=== PATIENT | female | born 1970 | race Caucasian/White ===

== ENCOUNTER → 2019-11-05 | Outpatient (CLI) | payer OTHER ==
[~2019-11-05] MED LIST: ATOR20TA PO; CLON0.5T PO; FLUO20CA16 PO; LOSA1TAB25 PO; LOSA25TA11 PO; NIFE30TA2 PO; ONDA-84 PO; [UNRECOGNIZED DRUG - REMARK]
--- NOTE | 2019-11-05 09:13 | RAD ---
Chest radiograph 11/05/2019 8:50 AM INDICATION: Cough COMPARISON: None available TECHNIQUE: Frontal and lateral views of the chest are provided. FINDINGS: The cardiomediastinal silhouette is within normal limits. There are no pleural effusions. There is no pulmonary vascular congestion. There is no pneumothorax. The lungs are clear. No significant osseous abnormality is identified. IMPRESSION: No acute cardiopulmonary process. Electronically signed by: Rosy Murphy MD (11/05/2019 9:10 AM) [facility]
== END | disposition home or self-care (01) ==
LOC: DXRAD 08:43
PROVIDERS: ATTEND Nurse Practitioner Family
DX: R07.2 Precordial pain (principal)
CPT/HCPCS: 71046

== ENCOUNTER → 2020-01-07 | Outpatient (CLI) | payer OTHER ==
--- NOTE | 2020-01-11 08:53 | RAD ---
DATE: 01/07/2020 11:04 AM EXAM: DIGITAL SCREEN BILAT W/CAD HISTORY: Baseline screening COMPARISON: None. Bilateral full field craniocaudal and mediolateral oblique images were obtained using digital technique. This study was interpreted with the benefit of Computerized Aided Detection (CAD). FINDINGS: Breast Density: FATTY The Breast Parenchyma is primarily fatty replaced. Breast parenchyma level density A. No suspicious masses, microcalcifications or architectural distortion is present to suggest malignancy in either breast. The visualized axillae are unremarkable. IMPRESSION: No mammographic evidence of malignancy. BI-RADS CATEGORY: 1 NEGATIVE RECOMMENDED FOLLOW-UP: 12M 12 MONTH FOLLOW-UP Annual screening mammography is recommended, unless clinically indicated sooner based on symptoms or change in physical exam. PQRS compliance statement: Patient information was entered into a reminder system with a target due date 01/07/2021 for the next mammogram. Mammography is a sensitive method for finding small breast cancers, but it does not detect them all and is not a substitute for careful clinical examination. A negative mammogram does not negate a clinically suspicious finding and should not result in delay in biopsying a clinically suspicious abnormality. "Our facility is accredited by the [employer] Mammography Program."
== END | disposition home or self-care (01) ==
LOC: MAMMO 10:46
PROVIDERS: ATTEND Nurse Practitioner Family
DX: Z12.31 Encounter for screening mammogram for malignant neoplasm of breast (principal)
CPT/HCPCS: 77067

== ENCOUNTER 2020-04-16 16:54 | Emergency (ER) | payer MEDICAID, OTHER ==
[~2020-04-16 16:54] MED LIST changes: +ONDA4TAB12 PO
== END 2020-04-16 17:30 | disposition left against medical advice (07) ==
LOC: ER 16:54
DX: R11.2 Nausea with vomiting, unspecified (principal); R19.7 Diarrhea, unspecified; Z53.21 Procedure and treatment not carried out due to patient leaving prior to being seen by health care provider

== ENCOUNTER 2020-08-26 09:07 | Emergency (ER) | payer OTHER ==
[~2020-08-26] VITALS: Ht 162.6 cm; Wt 121.8 kg
[2020-08-26 09:07] VITALS: BP 152/107
--- NOTE | 2020-08-26 09:25 | PHYS DOC ---
Past History Past Medical History: Depression, Hypertension, Kidney Stones, Other Past Surgical History: Cholecystectomy, Hysterectomy, Other Smoking: Cigarettes, Cigar Alcohol Use: Occasionally Drug Use: None General Adult HPI: HPI: 50-year-old female PMH Depression, Diabetes, GERD, Hypertension, fatty Liver Disease and right sided kidney stones presents to the ed with c/o abdominal pain "just above my right hip" that worsened at 6am. States "I always have chronic pain but this suddenly worsened," associated nausea, nonbloody nonbilious vomiting and hematuria. Patient is concerned she is passing a kidney stone due to recent CT imaging. EMR reviewed-0.3cm right non obstructive nephrolithiasis on March, CT imaging. Patient just started w/ primary care within the past few months. Reports she does not tolerate insulin due to nausea and vo miting. Has chronic "diarrhea due to my colitis," no formal GI evaluation- egd/colonoscopy evaluation for diagnosis. Is a tobacco smoker and states she has to smoke marijuana daily for this pain. Review of Systems: Review of Systems: Constitutional: Denies fever or chills Eyes: Denies change in visual acuity HENT: Denies nasal congestion or sore throat Respiratory: Denies cough or shortness of breath Cardiovascular: Denies chest pain or edema GI: Denies abdominal pain, nausea, vomiting, bloody stools or diarrhea : Denies dysuria or vaginal bleeding Musculoskeletal: Denies back pain or joint pain Integument: Denies rash or diaphoresis Neurologic: Denies headache, focal weakness or sensory changes Endocrine: Denies polyuria or polydipsia Lymphatic: Denies swollen glands Psychiatric: Denies depression or anxiety Allergies: Allergies: Allergies Coded Allergies Type Severity Reaction Last Updated Verified sulfamethoxazole Allergy Severe Itching 04/01/20 Yes trimethoprim Allergy Severe Itching 04/01/20 Yes codeine Allergy Mild 11/03/13 Yes Physical Exam: PE: Constitutional: In active pain, crying en route to bathroom, rn reports urine with visible blood, obese HENT: Normocephalic, atraumatic, Eyes: EOMI, conjunctiva normal, no discharge. Neck: Normal range of motion, supple, Cardiovascular: S1/2 present, regular rhythm Lungs & Thorax: Speaking in full sentences, bilateral equal chest rise, no tachypnea or increased work of breathing Abdomen: soft, no reproducible RUQ pain/rlq pain, no rigidity or guarding Skin: Warm, dry, no erythema, no rash. [] Back: No tenderness, no CVA tenderness. [] Extremities: No tenderness, no cyanosis, no lower extremity edema Neurologic: Alert and oriented X 3, normal motor function, normal sensory function, no focal deficits noted. [] Psychologic: Affect normal, judgement normal, mood normal. [] EKG: EKG: [] Radiology/Procedures: Radiology/Procedures: IMAGING REPORT Signed PATIENT: QIANA FREGOSO ACCOUNT: [id number] : 1970 LOCATION: ER AGE: 50 SEX: F EXAM STATUS: REG ER ORD. PHYSICIAN: MAYCO CAMPOS DO REASON: right flank pain PROCEDURE: CT ABDOMEN PELVIS WO CONTRAST EXAM: Abdomen and pelvis CT without intravenous contrast. HISTORY: Right flank pain. TECHNIQUE: Computed tomographic images of the abdomen and pelvis were obtained without contrast. Multiplanar reformatting was performed. *One or more of the following individualized dose reduction techniques were utilized for this examination: 1. Automated exposure control. 2. Adjustment of the mA and/or kV according to patient size. 3. Use of iterative reconstruction technique. COMPARISON: 07/13/2013. FINDINGS: Evaluation of the lower thorax demonstrates posterior dependent and basilar atelectasis. There is no infiltrate or pleural effusion. No hepatic lesion is seen. The gallbladder is surgically absent. The pancreas, spleen and adrenal glands are unremarkable. There is mild right hydronephrosis secondary to an obstructing 4 mm stone within the proximal ureter. No additional renal or ureteral stone is seen. There is no solid or cystic renal lesion. There is bladder wall thickening likely due to underdistention. There is no appendicitis. There is no bowel obstruction. There is no abnormal bowel wall thickening. There is distal colonic diverticulosis. The aorta is normal in caliber. There is aortobiiliac atherosclerosis. There is no lymphadenopathy. There is a 7 linear foreign body within the periumbilical fat to the left of midline. There is degenerative change involving the spine. There is no suspicious osseous lesion. IMPRESSION: 1. Mild right hydronephrosis secondary to an obstructing 4 mm stone within the proximal ureter. No additional renal or ureteral stone is seen. 2. Colonic diverticulosis. Electronically signed by: Azeb Do MD (08/26/2020 10:31 AM) [id number] DICTATED AND SIGNED BY: AZEB DO MD DATE: 08/26/20 1027 CC: ANTHONY MEREDITH; BETHMAYCO DO ~MTH0 0 Heart Score: C/O Chest Pain: No Risk Factors: Risk Factors: DM, Current or recent (<one month) smoker, HTN, HLP, family history of CAD, obesity. Risk Scores: Score 0 - 3: 2.5% MACE over next 6 weeks - Discharge Home Score 4 - 6: 20.3% MACE over next 6 weeks - Admit for Clinical Observation Score 7 - 10: 72.7% MACE over next 6 weeks - Early Invasive Strategies Course & Med Decision Making: Course & Med Decision Making Pertinent Labs and Imaging studies reviewed. (See chart for details) Concern for renal colic with mild right hydronephrosis secondary to 4 mm obstructive stone in the proximal ureter in the setting of daily thc use for chronic pain. Copious blood visible on UA sample per rn, [address] report shows aorta is normal in caliber. On reevaluation patient is sleeping, reports her pain is well-managed. Will DC home with analgesia, Flomax, zofran and recommend [id number] ibuprofen. CT report printed to take to pts' urologist. Is HD stable with asymptomatic hypertension, renal function improved from 03/2020-patient has no chest pain, shortness of breath, blurred vision, neurologic deficit or new acute kidney injury. Will discharge home with strict ED return precautions were given for nausea, vomiting, fever or flulike symptoms, severe pain or confusion/neurologic deficits. Encouraged urgent outpatient follow-up with PMD to repeat blood pressure within 2-3 days and urology urgent follow-up for definitive management. Life-threatening processes were considered but are low suspicion at this time, given history, physical exam and ED workup. Pt was educated on all prescription medications and adverse effects. All patient's questions were answered and pt was stable at time of discharge. Life/limb-threatening differential includes but is not limited to, aortic dissection/aneurysm, cauda equina syndrome, transverse myelitis, spinal cord/epidural compression syndromes, discitis, spinal stenosis, epidural abscess or hematoma, osteomyelitis, disc herniation, surgical abdomen, stable or unstable fracture, renal/ureteral colic, sepsis, meningitis, musculoskeletal injury, traumatic injury, intraabdominal/retroperitoneal or pelvic bleeding. I spoken with the patient and her caregivers. I explained the patient's condition, diagnoses and treatment plan based on the information available to me at this time. I have answered the patient and her caregiver's questions and addressed any concerns. The patient and her caregivers have a good understanding of patient's diagnosis, condition and treatment plan as can be expected at this point. Vital signs have been stable. Patient's condition is stable and appropriate for discharge from the emergency department. Patient will pursue further outpatient evaluation with primary care physician or other designated or consulting physician as outlined in the discharge instructions. The patient and/or caregivers are agreeable to this plan of care and follow-up instructions have been explained in detail. The patient and/or caregivers have received these instructions in written form and have expressed an understanding of the discharge instructions. The patient and/or caregivers are aware that any significant change of condition or worsening of symptoms should prompt immediate return to this or the closest emergency department or call to [phone]. Leslie Disclaimer: Leslie Disclaimer: This electronic medical record was generated, in whole or in part, using a voice recognition dictation system. Departure Departure: Impression: Primary Impression: Ureterolithiasis Additional Impressions: Hydronephrosis due to obstruction of ureter Hematuria Hypertension Disposition: 01 DC HOME SELF CARE/HOMELESS Condition: STABLE Referrals: ANTHONY MEREDITH (PCP) within 2-3 days for blood pressure check Patient Instructions: Diet for Kidney Stones, Kidney Stones Additional Instructions: FOLLOW WITH UROLOGY: FOR DEFINITIVE MANAGEMENT [facility] [address] [place] [address] OR [facility] [address] [address] FOLLOW UP WITH GASTROENTEROLOGY: [facility] [address], [address], [place] [address] EMERGENCY DEPARTMENT GENERAL DISCHARGE INSTRUCTIONS Thank you for coming to [facility] (ED) today and trusting us with you care. We trust that you had a positivie experience in our Emergency Department. If you wish to speak to the department management, you may call the director at [phone]. YOUR FOLLOW UP INSTRUCTIONS ARE FOLLOWS: 1. Do you have a private Doctor? If you do not have a private doctor, please ask for a resource list of physicians or clinics that may be able to assist you with follow up care. 2. The Emergency Physician has interpreted your x-rays. The X-Ray specialist will also review them. If there is a change in the findings, you will be notified in 48 hours when at all possible. 3. A lab test or culture has been done, your results will be reviewed and you will be notified if you need a change in treatment. ADDITIONAL INSTRUCTIONS AND INFORMATION: 1. Your care today has been supervised by a physician who is specially trained in emergency care. Many problems require more than one evaluation for a complete diagnosis and treatment. We recommend that you schedule your follow up appointment as recommended to ensure complete treatment of you illness or injury. If you are unable to obtain follow up care and continue to have a problem, or if your condition worsens, we recommend that you return to the ED. 2. We are not able to safely determine your condition over the phone nor are we able to give sound medical advice over the phone. For these safety reasons, if you call for medical advice we will ask you to come to the ED for further evaluation. 3. If you have any questions regarding these discharge instructions please call the ED at [phone]. SAFETY INFORMATION: In the interest of safety, wellness, and injury prevention; we encourage you to wear your sealbelt, if you smoke; quite smoking, and we encourage family to use a protective helmet for bicycling and other sporting events that present an increased risk for head injury. IF YOUR SYMPTOMS WORSEN OR NEW SYMPTOMS DEVELOP, OR YOU HAVE CONCERNS ABOUT YOUR CONDITION; OR IF YOUR CONDITION WORSENS WHILE YOU ARE WAITING FOR YOUR FOLLOW UP APPOINTMENT; EITHER CONTACT YOUR PRIMARY CARE DOCTOR, THE PHYSICIAN WHOSE NAME AND NUMBER YOU WERE GIVEN, OR RETURN TO THE ED IMMEDIATELY. Scripts Ondansetron (ONDANSETRON ODT) 4 Mg Tab.rapdis 4 MG PO Q6HRS for Nausea/Vomiting, #20 TAB Prov: MAYCO CAMPOS DO 08/26/20 Tamsulosin Hcl (FLOMAX) 0.4 Mg Cap.er.24h 0.4 MG PO DAILY for kidney stone for 7 Days, #7 CAP.SR Prov: MAYCO CAMPOS DO 08/26/20 Hydrocodone Bit/Acetaminophen (HYDROCODONE-APAP 5-325 ) 1 Each Tablet 1 TAB PO PRN Q6HRS PRN for PAIN for 4 Days, #16 TAB 0 Refills No alcohol, driving, or operating machinery with this medication. Causes constipation, take with fiber/stool softeners. Prov: MAYCO CAMPOS DO 08/26/20 MAYCO CAMPOS DO Aug 26, 2020 09:25
[2020-08-26] MEDS ORDERED: HYDROmorphone PF 1 MG/ML DISP.SYRIN ONE (09:26)
[2020-08-26] MEDS ORDERED: ONDANSETRON PF 4 MG/2 ML VIAL. ONE (09:26)
[2020-08-26] MEDS ORDERED: HYDROmorphone PF 2 MG/ML VIAL IVP ONE (09:30)
[2020-08-26] MEDS ORDERED: IV NORMAL SALINE 1,000ML 1,000 ML IV SCH (09:30)
[2020-08-26] MEDS ORDERED: HYDROmorphone PF 1 MG/ML DISP.SYRIN IVP ONE ×3 (09:30→09:45)
[2020-08-26] MEDS ORDERED: HALOPERIDOL LACT 5 MG/ML VIAL. IVP ONE (09:45)
[2020-08-26] MEDS ORDERED: ONDANSETRON PF 4 MG/2 ML VIAL. IVP ONE (09:45)
[2020-08-26 09:51] LABS: BASO % 0 % (0-3); EOS # 1.4 x10^3/uL (0.0-0.7); EOS % 12 % (0-3); HEMOGLOBIN 15.7 g/dL (12.0-15.5); LYMPH # 2.5 x10^3/uL (1.0-4.8); LYMPH % 22 % (24-48); MEAN CORPUSCULAR HEMOGLOBIN 29 pg (25-35); MEAN CORPUSCULAR HGB CONC 33 g/dL (31-37); MEAN CORPUSCULAR VOLUME 88 fL (79-100); MONO # 0.5 x10^3/uL (0.0-1.1); MONO % 4 % (0-9); NEUT # 6.9 x10^3uL (1.8-7.7); NEUT % 62 % (31-73); PLATELET COUNT 272 x10^3/uL (140-400); RED BLOOD COUNT 5.32 x10^6/uL (3.50-5.40); RED CELL DISTRIBUTION WIDTH 14.6 % (11.5-14.5); WHITE BLOOD COUNT 11.3 x10^3/uL (4.0-11.0)
[2020-08-26 10:00] LABS: CLARITY,URINE BLOODY; COLOR,URINE RED
[2020-08-26 10:00] LABS: CALCIUM 9.6 mg/dL (8.5-10.1); CREATININE 1.2 mg/dL (0.6-1.0); GFR 47.4; POTASSIUM 3.7 mmol/L (3.5-5.1)
[2020-08-26 10:01] LABS: AMORPHOUS SEDIMENT,UR PRESENT /HPF; BACTERIA,URINE 0 /HPF (0-FEW); BARBITURATES NEG (NEG); BENZODIAZEPINES NEG (NEG); CANNABINOIDS POS (NEG); COCAINE NEG (NEG); METHADONE NEG (NEG); OPIATES NEG (NEG); PHENCYCLIDINE NEG (NEG); RBC,URINE TNTC /HPF (0-2); SQUAMOUS EPITHELIAL CELL,UR FEW /LPF; WBC,URINE OCC /HPF (0-4)
[2020-08-26 10:02] LABS: U PREG PATIENT NEGATIVE (NEG)
[2020-08-26 10:03] LABS: AMPHETAMINE/METHAMPHETAMINE NEG (NEG)
[2020-08-26 10:07] LABS: ALBUMIN 3.6 g/dL (3.4-5.0); ALBUMIN/GLOBULIN RATIO 0.8 (1.0-1.7); TOTAL BILIRUBIN 0.6 mg/dL (0.2-1.0); TOTAL PROTEIN 7.9 g/dL (6.4-8.2)
--- NOTE | 2020-08-26 10:33 | RAD ---
EXAM: Abdomen and pelvis CT without intravenous contrast. HISTORY: Right flank pain. TECHNIQUE: Computed tomographic images of the abdomen and pelvis were obtained without contrast. Mult iplanar reformatting was performed. *One or more of the following individualized dose reduction techniques were utilized for this examina tion: 1. Automated exposure control. 2. Adjustment of the mA and/or kV according to patient size. 3. Use of iterative reconstruction technique. COMPARISON: 07/13/2013. FINDINGS: Evaluation of the lower thorax demonstrates posterior dependent and basilar atelectasis. Th ere is no infiltrate or pleural effusion. No hepatic lesion is seen. The gallbladder is surgically ab sent. The pancreas, spleen and adrenal glands are unremarkable. There is mild right hydronephrosis secondary to an obstructing 4 mm stone within the proximal ureter. No additional renal or ureteral stone is seen. There is no solid or cystic renal lesion. There is bl adder wall thickening likely due to underdistention. There is no appendicitis. There is no bowel obstruction. There is no abnormal bowel wall thickening. There is distal colonic diverticulosis. The aorta is normal in caliber. There is aortobiiliac atheros clerosis. There is no lymphadenopathy. There is a 7 linear foreign body within the periumbilical fat to the left of midline. There is degenerative change involving the spine. There is no suspicious osse ous lesion. IMPRESSION: 1. Mild right hydronephrosis secondary to an obstructing 4 mm stone within the proximal ureter. No ad ditional renal or ureteral stone is seen. 2. Colonic diverticulosis. Electronically signed by: Azeb Hernandez MD (08/26/2020 10:31 AM) [id number]
[2020-08-26] MEDS ORDERED: TAMSULOSIN 0.4 MG CAP.ER.24H. PO ONE (10:45)
[2020-08-26] MEDS ORDERED: TAMS0.4C97 PO (11:37)
[2020-08-26] MEDS ORDERED: HYDR-2155 PO (11:37)
[2020-08-26] MEDS ORDERED: ONDA4TAB12 PO (11:41)
== END 2020-08-26 11:50 | disposition home or self-care (01) ==
LOC: ER 09:07
DX: N13.2 Hydronephrosis with renal and ureteral calculous obstruction (principal); I10 Essential (primary) hypertension; K21.9 Gastro-esophageal reflux disease without esophagitis; F32.9 Major depressive disorder, single episode, unspecified; F17.210 Nicotine dependence, cigarettes, uncomplicated; E11.9 Type 2 diabetes mellitus without complications; Z87.442 Personal history of urinary calculi; Z90.49 Acquired absence of other specified parts of digestive tract; Z90.710 Acquired absence of both cervix and uterus; Z88.5 Allergy status to narcotic agent; Z88.1 Allergy status to other antibiotic agents; Z88.2 Allergy status to sulfonamides
CPT/HCPCS: 36415; 74176; 80053; 80307; 81001; 81025; 82550; 83690; 85025; 96361; 96374; 96375; 99284; J1170; J1630; J2405; J7030

== ENCOUNTER → 2020-09-08 | Outpatient (CLI) | payer OTHER ==
[2020-08-26 09:07] VITALS: BP 152/107
[~2020-09-08] MED LIST changes: +HYDR-2155 PO; +TAMS0.4C97 PO
--- NOTE | 2020-09-08 17:21 | RAD ---
XR KNEE _3 VIEWS_LT DATE: 09/08/2020 3:27 PM INDICATION: Reason: Recent fall, patellar pain / Spl. Instructions: / History: COMPARISON: None. FINDINGS: Bones: There is no evidence of acute fracture or dislocation. Joints: The joint spaces are normal. There is no joint effusion. Miscellaneous: None. IMPRESSION: No evidence of acute fracture. Electronically signed by: Boris Reece MD (09/08/2020 5:18 PM) [id number]
--- NOTE | 2020-09-08 17:23 | RAD ---
XR FOOT_LEFT 3 VIEWS DATE: 09/08/2020 3:27 PM INDICATION: Reason: Recent fall, swelling to foot. / Spl. Instructions: / History: COMPARISON: None. FINDINGS: Bones: There is no evidence of acute fracture or dislocation. Small posterior and plantar calcaneal e nthesophytes. Joints: The joint spaces are normal. Miscellaneous: None. IMPRESSION: No evidence of acute fracture. Electronically signed by: Boris Reece MD (09/08/2020 5:21 PM) [id number]
== END ==
LOC: DXRAD 15:21
PROVIDERS: ATTEND Nurse Practitioner Family
DX: M77.32 Calcaneal spur, left foot (principal); R22.42 Localized swelling, mass and lump, left lower limb
CPT/HCPCS: 73562; 73630

== ENCOUNTER 2020-12-13 11:55 | Emergency (ER) | payer OTHER ==
[~2020-12-13] VITALS: Ht 170.2 cm; Wt 115.8 kg
[2020-12-13] MEDS ORDERED: IV NORMAL SALINE 1,000ML 1,000 ML IV ONE (12:15)
[2020-12-13] MEDS ORDERED: ONDANSETRON PF 4 MG/2 ML VIAL. IVP ONE (12:15)
[2020-12-13 12:32] LABS: BASO % 1 % (0-3); EOS # 0.3 x10^3/uL (0.0-0.7); EOS % 4 % (0-3); HEMATOCRIT 43.1 % (36.0-47.0); HEMOGLOBIN 14.7 g/dL (12.0-15.5); LYMPH # 0.8 x10^3/uL (1.0-4.8); LYMPH % 11 % (24-48); MEAN CORPUSCULAR HEMOGLOBIN 30 pg (25-35); MEAN CORPUSCULAR HGB CONC 34 g/dL (31-37); MEAN CORPUSCULAR VOLUME 89 fL (79-100); MONO # 0.4 x10^3/uL (0.0-1.1); MONO % 5 % (0-9); NEUT # 5.9 x10^3uL (1.8-7.7); NEUT % 80 % (31-73); PLATELET COUNT 198 x10^3/uL (140-400); RED BLOOD COUNT 4.84 x10^6/uL (3.50-5.40); RED CELL DISTRIBUTION WIDTH 14.5 % (11.5-14.5); WHITE BLOOD COUNT 7.4 x10^3/uL (4.0-11.0)
--- NOTE | 2020-12-13 12:34 | PHYS DOC ---
Past History Past Medical History: CVA, Depression, Diverticulitis, GERD, Hypertension, Kidney Stones, Liver Disease, Stroke, Other Past Surgical History: Cholecystectomy, Hysterectomy, Other Smoking: Cigarettes, Cigar Alcohol Use: Occasionally Drug Use: None General Adult EDM: Chief Complaint: ABDOMINAL PAIN HPI: HPI: Patient is a 50-year-old female presents with lower abdominal pain, diarrhea, vomiting since Saturday night. Patient states "I have not been able to keep anything down". Patient denies taking anything for pain prior to arrival. Denies fevers. Patient has history of hypertension, diabetes, kidney stones. Review of Systems: Review of Systems: Constitutional: Denies fever or chills Eyes: Denies change in visual acuity HENT: Denies nasal congestion or sore throat Respiratory: Denies cough or shortness of breath Cardiovascular: Denies chest pain or edema GI: Reports lower abdominal pain, nausea, vomiting, diarrhea : Denies dysuria Musculoskeletal: Denies back pain or joint pain Integument: Denies rash Neurologic: Denies headache, focal weakness or sensory changes Endocrine: Denies polyuria or polydipsia Lymphatic: Denies swollen glands Psychiatric: Denies depression or anxiety Current Medications: Current Meds: Current Medications Medications (Trade) Dose Ordered Sig/Chandler Start Time Stop Time Status Last Admin Dose Admin Fentanyl Citrate (Fentanyl 2ml Vial) 50 mcg 1X ONCE 12/13/20 12:15 12/13/20 12:27 DC Ondansetron HCl (Zofran) 4 mg 1X ONCE 12/13/20 12:15 12/13/20 12:27 DC Sodium Chloride 1,000 ml @ 1,000 mls/hr 1X ONCE 12/13/20 12:15 12/13/20 13:14 Allergies: Allergies: Allergies Coded Allergies Type Severity Reaction Last Updated Verified sulfamethoxazole Allergy Severe Itching 04/01/20 Yes trimethoprim Allergy Severe Itching 04/01/20 Yes codeine Allergy Mild 11/03/13 Yes Physical Exam: PE: Constitutional: Well developed, well nourished, no acute distress, non-toxic appearance. [] HENT: Normocephalic, atraumatic, bilateral external ears normal, oropharynx moist, no oral exudates, nose normal. [] Eyes: PERRLA, EOMI, conjunctiva normal, no discharge. [] Neck: Normal range of motion, no tenderness, supple, no stridor. [] Cardiovascular:Heart rate regular rhythm, no murmur [] Lungs & Thorax: Bilateral breath sounds clear to auscultation [] Abdomen: Bowel sounds normal, soft, lower abdomen tenderness Skin: Warm, dry, no erythema, no rash. [] Back: No tenderness, no CVA tenderness. [] Extremities: No tenderness, no cyanosis, no clubbing, ROM intact, no edema. [] Neurologic: Alert and oriented X 3, normal motor function, normal sensory function, no focal deficits noted. [] Psychologic: Affect normal, judgement normal, mood normal. [] EKG: EKG: [] Radiology/Procedures: Radiology/Procedures: []Exam Date: 12/13/2020 12:[address] ABDOMEN+PELVIS WO Indication: Reason: LOWER ABDOMINAL PAIN / Spl. Instructions: / History: . TECHNIQUE: CT examination of the abdomen and pelvis was performed without oral or intravenous contrast. One or more of the following dose reduction techniques were utilized: *Automated exposure control (AEC) *Adjustment of mA and/or kV according to patient size *Use of iterative reconstruction technique *CT scan done according to ALARA, or ALARA/IMAGE GENTLY COMPARISON: August 26, 2020 FINDINGS: The visualized lung bases are clear. Status post cholecystectomy. The liver, spleen, pancreas, and adrenal glands are normal. The kidneys are normal bilaterally. No hydronephrosis or hydroureter is seen. No urinary tract calculi are seen. Urinary bladder is normal in appearance. Diverticulosis coli is seen without bowel obstruction or inflammation. The appendix is normal. There is a small fat-containing umbilical hernia. Mild atherosclerotic calcifications are seen. No lymphadenopathy or ascites is seen. Degenerative changes are seen in the spine. IMPRESSION: Normal appearance of the kidneys and bladder. No hydronephrosis or hydroureter. No urinary tract calculi. Diverticulosis coli noted without evidence for bowel inflammation or obstruction. Electronically signed by: Tru Allison MD (12/13/2020 1:06 PM) [id number] Heart Score: C/O Chest Pain: No Risk Factors: Risk Factors: DM, Current or recent (<one month) smoker, HTN, HLP, family history of CAD, obesity. Risk Scores: Score 0 - 3: 2.5% MACE over next 6 weeks - Discharge Home Score 4 - 6: 20.3% MACE over next 6 weeks - Admit for Clinical Observation Score 7 - 10: 72.7% MACE over next 6 weeks - Early Invasive Strategies Course & Med Decision Making: Course & Med Decision Making Pertinent Labs and Imaging studies reviewed. (See chart for details) [] 50-year-old female presents with lower abdominal pain, nausea/vomiting/diarrhea since Saturday night. CT of abdomen pelvis ordered rule out kidney stone. Patient given fentanyl and Zofran. She reports that pain and nausea have both improved. Discussed results with patient. I will be sending patient home with Zofran and Percocet for discomfort. Patient is to follow-up with her PCP if pain continues. Should be discharged with diagnosis of diverticulosis. Patient is appreciative and okay with discharge plan. Leslie Disclaimer: Leslie Disclaimer: This electronic medical record was generated, in whole or in part, using a voice recognition dictation system. Departure Departure: Impression: Primary Impression: Diverticulosis Additional Impressions: Diarrhea Qualified Codes: R19.7 - Diarrhea, unspecified Nausea & vomiting Qualified Codes: R11.2 - Nausea with vomiting, unspecified Disposition: HOME / SELF CARE / HOMELESS Condition: STABLE Referrals: TAY BRIDGES (PCP) Patient Instructions: Diverticulosis-Brief Scripts Oxycodone HCl/Acetaminophen (Percocet 5-325 mg Tablet) 1 Each Tablet 1 EACH PO Q4-6HRS PRN for PAIN for 3 Days, #12 TAB Prov: AYDIN RUBI APRN 12/13/20 Ondansetron Hcl (ZOFRAN) 4 Mg Tablet 4 MG PO TID PRN PRN for NAUSEA for 30 Days, #30 TAB Prov: AYDIN RUBI APRN 12/13/20 AYDIN RUBI APRN Dec 13, 2020 12:34
[2020-12-13 12:46] LABS: ALBUMIN 3.7 g/dL (3.4-5.0); ALBUMIN/GLOBULIN RATIO 0.9 (1.0-1.7); CALCIUM 9.5 mg/dL (8.5-10.1); CREATININE 1.1 mg/dL (0.6-1.0); GFR 52.4; POTASSIUM 3.5 mmol/L (3.5-5.1); TOTAL BILIRUBIN 0.6 mg/dL (0.2-1.0); TOTAL PROTEIN 7.6 g/dL (6.4-8.2)
--- NOTE | 2020-12-13 13:08 | RAD ---
Exam Date: 12/13/2020 12:[address] ABDOMEN+PELVIS WO Indication: Reason: LOWER ABDOMINAL PAIN / Spl. Instructions: / History: . TECHNIQUE: CT examination of the abdomen and pelvis was performed without oral or intravenous contra st. One or more of the following dose reduction techniques were utilized: *Automated exposure control (AEC) *Adjustment of mA and/or kV according to patient size *Use of iterative reconstruction technique *CT scan done according to ALARA, or ALARA/IMAGE GENTLY COMPARISON: August 26, 2020 FINDINGS: The visualized lung bases are clear. Status post cholecystectomy. The liver, spleen, pancreas, and adrenal glands are normal. The kidneys are normal bilaterally. No hydronephrosis or hydroureter is seen. No urinary tract calc du are seen. Urinary bladder is normal in appearance. Diverticulosis coli is seen without bowel obstruction or inflammation. The appendix is normal. There is a small fat-containing umbilical hernia. Mild atherosclerotic calcifications are seen. No lymphadenopathy or ascites is seen. Degenerative changes are seen in the spine. IMPRESSION: Normal appearance of the kidneys and bladder. No hydronephrosis or hydroureter. No urinary tract ca lculi. Diverticulosis coli noted without evidence for bowel inflammation or obstruction. Electronically signed by: Tru Allison MD (12/13/2020 1:06 PM) [id number]
[2020-12-13 13:24] LABS: BILIRUBIN,URINE NEG (NEG); CLARITY,URINE CLEAR; COLOR,URINE YELLOW; GLUCOSE,URINE NEG (NEG); NITRITE,URINE NEG (NEG); UROBILINOGEN,URINE 0.2 mg/dL (0.2 mg/dL)
[2020-12-13 13:29] LABS: BACTERIA,URINE FEW /HPF (0-FEW); SQUAMOUS EPITHELIAL CELL,UR FEW /LPF; WBC,URINE OCC /HPF (0-4)
[2020-12-13 14:50] VITALS: BP 152/81
[2020-12-13] MEDS ORDERED: OXYC-325 PO (14:54)
[2020-12-13] MEDS ORDERED: ONDA4TAB7 PO (14:54)
--- NOTE | 2020-12-13 20:47 | EKG ---
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
== END 2020-12-13 15:15 | disposition home or self-care (01) ==
LOC: ER 11:55
DX: K57.90 Diverticulosis of intestine, part unspecified, without perforation or abscess without bleeding (principal); R11.2 Nausea with vomiting, unspecified; R19.7 Diarrhea, unspecified; K21.9 Gastro-esophageal reflux disease without esophagitis; I10 Essential (primary) hypertension; F17.210 Nicotine dependence, cigarettes, uncomplicated; E11.9 Type 2 diabetes mellitus without complications; Z87.442 Personal history of urinary calculi; Z86.73 Personal history of transient ischemic attack (TIA), and cerebral infarction without residual deficits; Z88.2 Allergy status to sulfonamides; Z88.1 Allergy status to other antibiotic agents; Z88.5 Allergy status to narcotic agent
CPT/HCPCS: 36415; 74176; 80053; 81001; 81025; 83690; 85025; 93005; 96374; 96375; 96376; 99285; J2405; J3010; J7030

== ENCOUNTER → 2021-03-24 | Outpatient (CLI) | payer OTHER ==
[~2021-03-24] MED LIST changes: +ONDA4TAB7 PO; +OXYC-325 PO
--- NOTE | 2021-03-24 09:10 | RAD ---
EXAM: Left knee, 3 views. HISTORY: Pain. Fall. COMPARISON: None. FINDINGS: 3 views of the left knee are obtained. There is no fracture, dislocation or subluxation. Th ere is no joint effusion. IMPRESSION: No acute osseous finding. Electronically signed by: Azeb Hernandez MD (03/24/2021 9:08 AM) [id number]
== END ==
LOC: RAD 08:40
PROVIDERS: ATTEND Family Medicine
DX: M25.562 Pain in left knee (principal)
CPT/HCPCS: 73562

== ENCOUNTER → 2021-04-05 | Outpatient (CLI) | payer OTHER ==
--- NOTE | 2021-04-05 16:29 | RAD ---
US EXT NON VASC RIGHT History:Reason: RT AXILLARY LUMPS X 1 MONTH / Spl. Instructions: / History: Comparison: None Technique: Sonographic examination of the right axillary region. Findings: Complicated cystic lesion within the right axilla subcutaneous tissues measures 0.3 x 0.3 cm. Additio nal complicated cystic lesion within the right axilla measures 0.3 x 0.4 x 0.2 cm. These lesions martinez espond with the patient's palpable concern. No pathologic lymphadenopathy. Impression: 1. Two small complicated cystic lesions within the right axillary subcutaneous tissues, may represen t epidermal inclusion cysts. Recommend clinical follow-up and ultrasound follow-up if indicated. Electronically signed by: Norberto Arboleda DO (04/05/2021 4:27 PM) [id number]
== END ==
LOC: US 12:52
PROVIDERS: ATTEND Family Medicine
DX: R22.31 Localized swelling, mass and lump, right upper limb (principal)
CPT/HCPCS: 76881

== ENCOUNTER 2021-07-06 20:56 | Emergency (ER) | payer OTHER ==
[~2021-07-06] VITALS: Ht 170.2 cm; Wt 115.8 kg
[2021-07-06 21:02] VITALS: BP 130/80
--- NOTE | 2021-07-06 21:28 | PHYS DOC ---
Past History Past Medical History: CVA, Depression, GERD, Hypertension, Kidney Stones, Other Additional Past Medical Histor: gastritis, colitis, fatty liver (CALI OSBORN) Past Surgical History: Cholecystectomy, Hysterectomy, Other Additional Past Surgical Histo: d&c (CALI OSBORN) Smoking: Cigarettes, Cigar Alcohol Use: None Drug Use: None (CALI OSBORN) General Adult EDM: Chief Complaint: FLANK PAIN HPI: HPI: Patient is a 51 year old female who presents with 2-day history of left flank pain, urinary urgency and urinary frequency. She states her pain is 9/10 in her left flank radiating around her abdomen and down the left extremity. Patient reports she has history of kidney stones. She denies fever, chills, weakness, hematuria, dysuria, abdominal pain, NVD. (CALI OSBORN) Review of Systems: Review of Systems: ROS negative or noncontributory except as mentioned in HPI. (CALI OSBORN) Allergies: Allergies: Allergies Coded Allergies Type Severity Reaction Last Updated Verified sulfamethoxazole Allergy Severe Itching 07/06/21 Yes trimethoprim Allergy Severe Itching 07/06/21 Yes codeine Allergy Mild 07/06/21 Yes (CALI OSBORN) Physical Exam: PE: Constitutional: Well developed, well nourished, no acute distress, non-toxic appearance. HENT: Normocephalic, atraumatic, bilateral external ears normal, nose normal. Eyes: EOMI, conjunctiva normal, no discharge. Neck: Normal range of motion, no stridor. Abdomen: Bowel sounds normal, soft, no tenderness, no masses, no pulsatile masses. Skin: Warm, dry, no erythema, no rash. Back: No tenderness, no CVA tenderness. [] Neurologic: Alert and oriented x4, steady and symmetrical gait, no focal deficits noted. (CALI OSBORN) Current Patient Data: Labs: Laboratory Tests Test 07/06/21 21:15 Urine Collection Type Unknown Urine Color Yellow Urine Clarity Clear Urine pH 6.5 Urine Specific [place] 1.020 Urine Protein Neg (NEG-TRACE) Urine Glucose (UA) Neg mg/dL (NEG) Urine Ketones (Stick) Neg mg/dL (NEG) Urine Blood Small (NEG) Urine Nitrite Neg (NEG) Urine Bilirubin Neg (NEG) Urine Urobilinogen Dipstick 0.2 mg/dL (0.2 mg/dL) Urine Leukocyte Esterase Neg (NEG) Urine RBC 1-2 /HPF (0-2) Urine WBC Rare /HPF (0-4) Urine Squamous Epithelial Cells Few /LPF Urine Bacteria 0 /HPF (0-FEW) Vital Signs: Vital Signs Date Time Temp Pulse Resp B/P (MAP) Pulse Ox O2 Delivery O2 Flow Rate FiO2 07/06/21 21:02 99.0 87 20 130/80 (97) 97 Room Air (CALI OSBORN) Radiology/Procedures: Radiology/Procedures: PROCEDURE: CT ABDOMEN PELVIS WO CONTRAST EXAMINATION: CT abdomen and pelvis without IV contrast. INDICATION:51 years, Female, flank pain. TECHNIQUE: Axial CT images of the abdomen and pelvis were obtained. Coronal and sagittal reformatted performed. COMPARISON: CT dated 12/13/2020. Exposure: One or more of the following individualized dose reduction techniques were utilized for this examination: 1. Automated exposure control 2. Adjustment of the mA and/or kV according to patient size 3. Use of iterative reconstruction technique. FINDINGS: LOWER CHEST: Trace amount of pericardial effusion. ABDOMEN/PELVIS: Within the limitation of noncontrast exam, No hydronephrosis or nephrolithiasis in either kidney. Diffuse urinary bladder wall thickening, may relate to underdistended lumen. Liver, spleen, pancreas, adrenal glands and biliary ducts are unremarkable. Cholecystectomy. No bowel obstruction. Colonic diverticulosis without acute diverticulitis. Normal appendix. Moderate aortoiliac atherosclerotic calcifications without dilation. No pneumoperitoneum or ascites. No pathologically enlarged lymph nodes in the abdomen or pelvis by size criteria. Hysterectomy. No suspicious pelvic masses. MUSCULOSKELETAL STRUCTURES: No acute osseous process. Mild multilevel degenerative changes in the spine. Small fat-containing umbilical hernia, unchanged. IMPRESSION: 1. No obstructive uropathy or urolithiasis. 2. Diffuse urinary bladder wall thickening, may relate to underdistended lumen. Correlate for cystitis. 3. Colonic diverticulosis without acute diverticulitis. Electronically signed by: Yana Rahman MD (07/06/2021 9:55 PM) [facility] (CALI OSBORN) Heart Score: C/O Chest Pain: No (CALI OSBORN) Course & Med Decision Making: Course & Med Decision Making Pertinent Labs and Imaging studies reviewed. (See chart for details) Patient is a 51-year-old female with history of kidney stones who presents today with left-sided flank pain, urinary frequency and urinary urgency that began 2 days ago. She states that her back pain worsened this morning around 0600. She attempted using a massage gun and stretching to relieve her pain, but nothing worked. Work-up today will include urinalysis and CT abdomen pelvis plain. She is provided with IM Toradol and Norflex. No stones are seen on CT imaging. It is possible that she already passed the stones, if there were any. (CALI OSBORN) Course & Med Decision Making Did not see or evaluate patient. Discussed patient with [employer] INST[employer]ER. Agree with [employer] INST[employer]ER's work-up and disposition per note. (KAYDEN JOSHI MD) Dragon Disclaimer: Dragon Disclaimer: This electronic medical record was generated, in whole or in part, using a voice recognition dictation system. (CALI OSBORN) Departure Departure: Impression: Primary Impression: Low back pain Qualified Codes: M54.50 - Low back pain, unspecified Disposition: HOME / SELF CARE / HOMELESS Condition: IMPROVED Referrals: TWYLA MUNIZ (PCP) Patient Instructions: Diet for Kidney Stones Additional Instructions: EMERGENCY DEPARTMENT GENERAL DISCHARGE INSTRUCTIONS Thank you for coming to [facility] (ED) today and trusting us with you care. We trust that you had a positive experience in our Emergency Department. If you wish to speak to the department management, you may call the director at . YOUR FOLLOW UP INSTRUCTIONS ARE FOLLOWS: 1. Follow up with your primary care doctor. If you do not have a primary doctor, please ask for a resource list of physicians or clinics that may be able to assist you with follow up care. 2. The emergency provider has interpreted your images. The radiology microarray specialist also reviewed them. If there is a change in the findings, you will be notified in 48 hours when at all possible. 3. A lab test or culture has been done, your results will be reviewed and you will be notified if you need a change in treatment. 4. Follow instructions verbalized to you and refer to the printouts if needed. ADDITIONAL INSTRUCTIONS AND INFORMATION: 1. Your care today has been supervised by a physician who is specially trained in emergency care. Many problems require more than one evaluation for a complete diagnosis and treatment. We recommend that you schedule your follow up appointment as recommended to ensure complete treatment of you illness or injury. If you are unable to obtain follow up care and continue to have a problem, or if your condition worsens, we recommend that you return to the ED. 2. We are not able to safely determine your condition over the phone nor are we able to give sound medical advice over the phone. For these safety reasons, if you call for medical advice we will ask you to come to the ED for further evaluation. 3. If you have any questions regarding these discharge instructions please call the ED at . SAFETY INFORMATION: In the interest of safety, wellness, and injury prevention; we encourage you to wear your seat belt, if you smoke; quite smoking, and we encourage family to use a protective helmet for bicycling and other sporting events that present an increased risk for head injury. IF YOUR SYMPTOMS WORSEN OR NEW SYMPTOMS DEVELOP, OR YOU HAVE CONCERNS ABOUT YOUR CONDITION; OR IF YOUR CONDITION WORSENS WHILE YOU ARE WAITING FOR YOUR FOLLOW UP APPOINTMENT; EITHER CONTACT YOUR PRIMARY CARE DOCTOR, THE PHYSICIAN WHOSE NAME AND NUMBER YOU WERE GIVEN, OR RETURN TO THE ED IMMEDIATELY. CALI OSBORN Jul 06, 2021 21:28 KAYDEN JOSHI MD Jul 07, 2021 00:58
[2021-07-06] MEDS ORDERED: KETOROLAC 60 MG/2 ML VIAL. IM ONE (21:45)
[2021-07-06] MEDS ORDERED: ORPHENADRINE CITRATE 60 MG/2 ML VIAL. IM ONE (21:45)
--- NOTE | 2021-07-06 21:57 | RAD ---
EXAMINATION: CT abdomen and pelvis without IV contrast. INDICATION:51 years, Female, flank pain. TECHNIQUE: Axial CT images of the abdomen and pelvis were obtained. Coronal and sagittal reformatted performed. COMPARISON: CT dated 12/13/2020. Exposure: One or more of the following individualized dose reduction techniques were utilized for thi s examination: 1. Automated exposure control 2. Adjustment of the mA and/or kV according to patient size 3. Use of iterative reconstruction technique. FINDINGS: LOWER CHEST: Trace amount of pericardial effusion. ABDOMEN/PELVIS: Within the limitation of noncontrast exam, No hydronephrosis or nephrolithiasis in either kidney. Diffuse urinary bladder wall thickening, may r elate to underdistended lumen. Liver, spleen, pancreas, adrenal glands and biliary ducts are unremarkable. Cholecystectomy. No bowel obstruction. Colonic diverticulosis without acute diverticulitis. Normal appendix. Moderate aortoili ac atherosclerotic calcifications without dilation. No pneumoperitoneum or ascites. No pathologically enlarged lymph nodes in the abdomen or pelvis by size criteria. Hysterectomy. No suspicious pelvic m asses. MUSCULOSKELETAL STRUCTURES: No acute osseous process. Mild multilevel degenerative changes in the spine. Small fat-containing umb ilical hernia, unchanged. IMPRESSION: 1. No obstructive uropathy or urolithiasis. 2. Diffuse urinary bladder wall thickening, may relate to underdistended lumen. Correlate for cystit is. 3. Colonic diverticulosis without acute diverticulitis. Electronically signed by: Yana Rahman MD (07/06/2021 9:55 PM) [facility]
[2021-07-06] MEDS ORDERED: oxyCODONE/APAP 5/325 1 TAB TABLET PO ONE (22:00)
[2021-07-06 22:02] LABS: BACTERIA,URINE 0 /HPF (0-FEW); BILIRUBIN,URINE NEG (NEG); CLARITY,URINE CLEAR; COLOR,URINE YELLOW; GLUCOSE,URINE NEG (NEG); NITRITE,URINE NEG (NEG); SQUAMOUS EPITHELIAL CELL,UR FEW /LPF; UROBILINOGEN,URINE 0.2 mg/dL (0.2 mg/dL); WBC,URINE RARE /HPF (0-4)
== END 2021-07-06 22:20 | disposition home or self-care (01) ==
LOC: ER 20:56
DX: M54.59 Other low back pain (principal); R39.15 Urgency of urination; K21.9 Gastro-esophageal reflux disease without esophagitis; I10 Essential (primary) hypertension; F17.210 Nicotine dependence, cigarettes, uncomplicated; Z87.442 Personal history of urinary calculi; Z86.73 Personal history of transient ischemic attack (TIA), and cerebral infarction without residual deficits; Z90.49 Acquired absence of other specified parts of digestive tract; Z90.710 Acquired absence of both cervix and uterus; Z88.2 Allergy status to sulfonamides; Z88.1 Allergy status to other antibiotic agents; Z88.5 Allergy status to narcotic agent
CPT/HCPCS: 74176; 81001; 96372; 99284; J1885; J2360